=== PATIENT | female | born 1985 | race Two or more races ===

== ENCOUNTER 2018-10-16 10:48 | Emergency (ER) | payer BC, MEDICAID ==
[~2018-10-16] VITALS: Ht 167.6 cm; Wt 77.1 kg
[2018-10-16 11:22] VITALS: BP 116/89
[2018-10-16] MEDS ORDERED: DEXAMETHASONE SOD PHOSPHATE 4 MG/ML VIAL IV ONE (12:00)
[2018-10-16] MEDS ORDERED: METOCLOPRAMIDE HCL 10 MG/2 ML VIAL IV ONE (12:00)
[2018-10-16] MEDS ORDERED: KETOROLAC TROMETHAMINE INJ 30 MG/ML VIAL IV ONE (12:00)
[2018-10-16] MEDS ORDERED: IV NS 0.9% 1,000 ML BAG IV ONE (12:00)
[2018-10-16] MEDS ORDERED: diphenhydrAMINE HCL 50 MG/ML VIAL IV ONE (12:00)
[2018-10-16] MEDS ORDERED: KETOROLAC TROMETHAMINE INJ 30 MG/ML VIAL ONE (12:01)
[2018-10-16] MEDS ORDERED: DEXAMETHASONE SOD PHOSPHATE 10 MG/ML VIAL ONE (12:01)
[2018-10-16] MEDS ORDERED: diphenhydrAMINE HCL 50 MG/ML VIAL ONE (12:01)
[2018-10-16] MEDS ORDERED: METOCLOPRAMIDE HCL 10 MG/2 ML VIAL ONE (12:02)
--- NOTE | 2018-10-16 12:04 | NUR ---
CHAIR 1 MOVING TO BED 16 PER RN SANJANA
== END 2018-10-16 13:18 | disposition home or self-care (01) ==
LOC: ER 10:52
DX: R51 Headache (principal)
CPT/HCPCS: 84703; 96374; 96375; 99283; J1100; J1200; J1885; J2765; J7030